=== PATIENT | female | born 1980 | race Caucasian/White ===

== ENCOUNTER → 2019-08-20 | Outpatient (CLI) | payer BC ==
[2019-08-20 11:30] LABS: HCT 39.6 % (34.0-46.0); HGB 13.2 gm/dL (11.4-16.0); MCH 30.7 pg (25.0-35.0); MCHC 33.4 g/dL (31.0-37.0); Mean Platelet Volume 8.2; Platelet Count 207 k/uL (150-450); WBC 6.2 k/uL (3.8-10.6)
[2019-08-20 16:56] LABS: Thyroid Peroxidase Antibodies <28.0 U/mL (0.0-60.0)
[2019-08-20 17:03] LABS: African American GFR (CKD) 108.4 (60.0-200.0); Albumin 4.3 g/dL (3.80-4.90); Albumin/Globulin Ratio 2.26 (1.60-3.17); Anion Gap 7.9 mmol/L (4.00-12.00); BUN/Creat Ratio 16.25 Ratio (12.00-20.00); Calcium 9.1 mg/dL (8.7-10.3); Carbon Dioxide 28.1 mmol/L (21.6-31.8); Globulin 1.9 g/dL (1.6-3.3); Non-African American GFR(CKD) 93.5 (60.0-200.0); Potassium 3.8 mmol/L (3.5-5.5); Total Bilirubin 0.5 mg/dL (0.3-1.2); Total Protein 6.2 g/dL (6.2-8.2)
[2019-08-20 17:11] LABS: Prolactin 9.5 ng/mL (2.8-29.2); T4, Free (Free Thyroxine) 1.1 ng/dL (0.80-1.80)
== END | disposition home or self-care (01) ==
LOC: LABWHC1 10:07
PROVIDERS: ATTEND Internal Medicine Endocrinology, Diabetes & Metabolism
DX: R53.83 Other fatigue (principal); R94.6 Abnormal results of thyroid function studies
CPT/HCPCS: 36415; 80053; 82533; 82607; 84146; 84439; 84443; 84481; 85027; 86376; 86800

== ENCOUNTER → 2024-05-22 | Outpatient (CLI) | payer BC ==
--- NOTE | 2024-05-24 15:18 | MM ---
Reason for Exam: Screening (asymptomatic). Baseline mammogram. Patient History: Menarche at age 12. First Full-Term at age 31. Late child-bearing (after 31). Patient has history of breast feeding. Patient used Hormonal Contraceptives for 11 years. Last menstrual period: 05/19/2024 Risk Values: Kerry 5 year model risk: 1.1%. NCI Lifetime model risk: 14.4%. Prior Study Comparison: Patient's first Mammogram. Tissue Density: The breasts are heterogeneously dense, which may obscure small masses. Findings: Analyzed By CAD. There are several grouped calcifications lateral posterior left breast for which further magnification views are recommended. Otherwise, no significant mass or other discrete abnormality is seen. Overall Assessment: Incomplete: need additional imaging evaluation, BI-RAD 0 Management: Special View Mammogram of the left breast. [facility] will attempt to contact patient to return for supplemental views. [facility], , 05/24/2024 3:14 PM. Electronically signed and approved by: Christos Simspon M.D. Radiologist
== END | disposition home or self-care (01) ==
LOC: RADMAMWWP 10:02
PROVIDERS: ATTEND Obstetrics & Gynecology
DX: Z12.31 Encounter for screening mammogram for malignant neoplasm of breast (principal); R92.333 Mammographic heterogeneous density, bilateral breasts
CPT/HCPCS: 77067

== ENCOUNTER → 2024-06-05 | Outpatient (CLI) | payer BC ==
--- NOTE | 2024-06-05 14:42 | MM ---
Reason for Exam: Clinical finding. Last screening mammogram was performed less than 1 month ago. Patient History: Menarche at age 12. First Full-Term at age 31. Late child-bearing (after 31). Patient has history of breast feeding. Patient used Hormonal Contraceptives for 11 years. Risk Values: Kerry 5 year model risk: 1.1%. NCI Lifetime model risk: 14.4%. Prior Study Comparison: 05/22/2024 Bilateral MG screening mammo w CAD, [facility]. Tissue Density: Left: The breasts are extremely dense, which lowers the sensitivity of mammography. Findings: Analyzed By CAD. Pattern appears stable. Suspicious clustered microcalcifications are not identified. Precautionary short-term follow-up recommended No suspicious groups of microcalcifications, spiculated or lobular masses, architectural distortion or other secondary signs of malignancy are mammographically apparent. Overall Assessment: Probably benign, BI-RAD 3 Management: Diagnostic Mammogram of the left breast in 6 months. A negative mammogram report should not preclude additional follow up of suspicious palpable abnormalities. Patient should continue monthly self breast exam. A clinical breast exam by your physician is recommended on an annual basis and results should be correlated with mammographic findings. Note on Kerry scores and lifetime risk: 1. A Kerry score greater than 3% is considered moderate risk. If this is the case, consider specialist referral to assess eligibility for a risk reducing agent. 2. If overall lifetime risk for the development of breast cancer is 20% or higher, the patient may qualify for future screening with alternating mammogram and breast MRI. [facility], , 06/05/2024 2:39 PM. Electronically signed and approved by: Narendra Pereira D.O. Radiologis
== END | disposition home or self-care (01) ==
LOC: RADMAMWWP 14:16
PROVIDERS: ATTEND Obstetrics & Gynecology
DX: R92.8 Other abnormal and inconclusive findings on diagnostic imaging of breast (principal); R92.342 Mammographic extreme density, left breast
CPT/HCPCS: 77061; 77065

== ENCOUNTER → 2024-12-12 | Outpatient (CLI) | payer SELFPAY ==
--- NOTE | 2024-12-12 09:41 | MM ---
Reason for Exam: Follow-up at short interval from prior study. Last screening mammogram was performed 7 month(s) ago. Patient History: Menarche at age 12. First Full-Term at age 31. Late child-bearing (after 31). Patient has history of breast feeding. Patient used Hormonal Contraceptives for 11 years. Last menstrual period: 12/05/2024 Risk Values: Kerry 5 year model risk: 1.1%. NCI Lifetime model risk: 14.4%. Prior Study Comparison: 05/22/2024 Bilateral MG screening mammo w CAD, [facility]. 06/05/2024 Left MG 3D work up w/cad , [facility]. Tissue Density: Left: The breasts are heterogeneously dense, which may obscure small masses. Findings: Analyzed By CAD. Redemonstrated grouped punctate calcifications approximately 3:00 left breast middle depth. Very faint grouped microcalcifications are noted at a posterior depth. On CT, appear punctate. Seen in retrospect on the MLO view. An additional subtle group of punctate calcifications are present, also approximately 3:00 anterior to middle depth. Refer to the mag CC view and the mag ML view. The anterior and posterior groups are very difficult to appreciate on the regular mammogram images. All 3 groups can continue to be followed. Mag CC and mag ML view can be repeated at the follow-up. Overall Assessment: Probably benign, BI-RAD 3 Management: Diagnostic Mammogram of both breasts in 6 months. Total one-year follow-up left breast grouped punctate calcifications. Include a mag CC and mag ML view on the patient's follow-up as 2 of the groups are only well-seen with magnification. Annual exam of the right breast. Results were given to the patient verbally at the time of exam. Patient should continue monthly self-breast exams. A clinical breast exam by your physician is recommended on an annual basis. This exam should not preclude additional follow-up of suspicious palpable abnormalities. Note on Kerry scores and lifetime risk: 1. A Kerry score greater than 3% is considered moderate risk. If this is the case, consider specialist referral to assess eligibility for a risk reducing agent. 2. If overall lifetime risk for the development of breast cancer is 20% or higher, the patient may qualify for future screening with alternating mammogram and breast MRI. [facility], , 12/12/2024 9:38 AM. Electronically signed and approved by: Christos Simpson M.D. Radiologist
== END | disposition home or self-care (01) ==
LOC: RADMAMWWP 08:24
PROVIDERS: ATTEND Obstetrics & Gynecology
DX: R92.8 Other abnormal and inconclusive findings on diagnostic imaging of breast (principal); R92.332 Mammographic heterogeneous density, left breast; R92.1 Mammographic calcification found on diagnostic imaging of breast; Z92.0 Personal history of contraception
CPT/HCPCS: 77061; 77065